=== PATIENT | female | born 1965 | race Caucasian/White ===

== ENCOUNTER → 2017-07-12 | Outpatient (CLI) | payer MEDICAID | LOC: FIMAGING 12:43 | PROVIDERS: ATTEND Internal Medicine | DX: Z12.31 Encounter for screening mammogram for malignant neoplasm of breast (principal); M79.652 Pain in left thigh; M76.02 Gluteal tendinitis, left hip; S73.192A Other sprain of left hip, initial encounter; M76.892 Other specified enthesopathies of left lower limb, excluding foot; M51.36 Other intervertebral disc degeneration, lumbar region ==